=== PATIENT | male | born 1950 | race Caucasian/White ===

== ENCOUNTER 2020-05-05 14:44 | Outpatient (CLI) | payer MEDICARE, OTHER, SELFPAY ==
--- NOTE | 2020-05-05 14:56 | XR_ITS ---
WS: [id number] Chest 2 views, 05/05/2020 Clinical Data: CHRONIC COUGH Comparison: PA and lateral chest, 07/18/2011 Findings: No nodules, masses or effusions are seen. The heart is normal. The pulmonary vascularity is not increased. No pneumonia or pneumothorax is seen. The patient's had an anterior cervical disc fus ion. The aortic arch and descending aorta are slightly tortuous. There is a dextroscoliosis of the zahra mbar spine. XR/XR chest 2V* [id number] Impression: Atherosclerosis.
== END 2020-05-05 14:45 | disposition home or self-care (01) ==
LOC: RADWPI 14:48
PROVIDERS: Family Provider Family Medicine; PCP Family Medicine; Visit Provider Family Medicine
DX: R05 Cough (principal)
CPT/HCPCS: 71046

== ENCOUNTER 2020-06-01 12:00 | Outpatient (CLI) | payer MEDICARE, OTHER, SELFPAY | END 2020-06-01 12:01 | disposition home or self-care (01) | LOC: SLEEP 06-02 13:52 | PROVIDERS: Family Provider Family Medicine; PCP Family Medicine; Visit Provider Internal Medicine Critical Care Medicine | DX: G47.10 Hypersomnia, unspecified (principal); R53.83 Other fatigue; R06.83 Snoring; G47.33 Obstructive sleep apnea (adult) (pediatric) | CPT/HCPCS: G0399 ==

== ENCOUNTER 2021-02-09 09:41 | Outpatient (CLI) | payer MEDICARE, OTHER, SELFPAY ==
[2021-02-09 11:04] VITALS: BMI 22.7
--- NOTE | 2021-02-09 11:04 | ECG_ITS ---
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 Baseline heart rate was 92 beats per minute. Baseline blood pressure was 191/81 millimeters of mercury. Target heart rate was 151 beats per minute. Maximum heart rate achieved was 134, which was 88% of the target heart rate. Maximum blood pressure was 214/85 millimeters of mercury. Total exercise time was 2 minutes 31 seconds. Maximum METs achieved was 4.6, maximum VO2 was 16.1. The reason for ending the test was maximum effort achieved. The patient complained of during the stress test, which then resolved at the end of the test. ELECTROCARDIOGRAM: BASELINE: Showed sinus rhythm, normal axis, right bundle branch block, no significant ST-T changes at the baseline noted. EXERCISE: At the peak exercise level, no significant ST-T changes suggestive of ischemia noted. RECOVERY: During the recovery period, heart rate dropped appropriately. No significant ST-T changes in the recovery suggestive of ischemia noted. CONCLUSION: 1. Exercise capacity poor. 2. Heart rate response was tachycardic. 3. Blood pressure response was hypertensive. 4. Symptoms not suggestive of ischemia. 5. Electrocardiogram portion of the stress test was not suggestive of ischemia. 6. Nuclear scan will be documented separately. Please note that due to under achievement of METs and poor exercise capacity specificity and center history of EKG portion of the stress test will be low. Electronically Signed On 03-09-2021 20:13:10 CDT by LUIS EDUARDO GARZA [id number]
--- NOTE | 2021-02-09 11:05 | NMCV_ITS ---
NM billie perf SPECT r/s* [id number] Magaly Romeo Age: 70 Gender: M : 1950 Exam Date: 02/09/2021 11:05 Ordering Phys: Claudio Guillen MD Technologist: TEVIN Hung Exam Location: [facility] [place] Indications: DYSPNEA STRESS TEST Please see separate stress test report in [facility] for full findings IMAGE PROTOCOL Rest/Stress 1 Exercise Day Radiopharmaceutical Dose (mCi) Administration Site Administered by Rest: Tc-99m 10.6 IV TEVIN Hung Sestamibi Stress:Tc-99m 32.7 IV TEVIN Wang Sestamibi Rest: 09-Feb-2021 60 Discovery 630 Stress: 09-Feb-2021 15 Discovery 630 Radiopharmaceutical was injected at 86 % maximum heart rate. Images obtained in supine and prone position. SPECT RESULTS Technical Quality: Excellent Raw Data Analysis: Normal Image Corrections: No attenuation or motion correction applied Summed Stress Score: 1 Summed Rest Score: 0 Summed Difference Score: 1 PERFUSION FINDINGS SPECT images demonstrate homogeneous tracer distribution throughout the myocardium. FUNCTIONAL RESULTS (calculated via Gated SPECT) Stress Image LV EF (%): 76 Stress EDV (mL):70 TID: 1 Stress ESV (mL):17 Rest Image LV EF (%): 76 FUNCTIONAL FINDINGS: There is normal left ventricular systolic function. IMPRESSIONS Myocardial perfusion imaging is normal and low probability for obstructive coronary disease. EKG segment will be documented separately . Abdiaziz Castaneda MD (Electronically Signed) Final Date: 10 February 2021 12:40 S
[2021-02-09 11:44] VITALS: BP 185/90; PULSE 99
== END 2021-02-09 09:42 | disposition home or self-care (01) ==
PROVIDERS: PCP Family Medicine; Visit Provider Family Medicine
DX: R07.9 Chest pain, unspecified (principal); R06.00 Dyspnea, unspecified
CPT/HCPCS: 78452; 93017; A9500

== ENCOUNTER → 2021-10-14 09:49 | Outpatient (BNVA) | payer MEDICARE, OTHER, SELFPAY | PROVIDERS: PCP Family Medicine; Visit Provider Nurse Practitioner Family | DX: Z20.822 Contact with and (suspected) exposure to COVID-19 (principal) | CPT/HCPCS: 87635 ==

== ENCOUNTER 2021-10-21 10:25 | Outpatient (CLI) | payer MEDICARE, OTHER, SELFPAY ==
--- NOTE | 2021-10-21 | MR_ITS ---
WS: [id number] MRI CERVICAL SPINE NONCONTRAST TECHNIQUE: Sagittal T1, T2 and STIR imaging. Axial T2, gradient, and fiesta imaging. CLINICAL INFORMATION: CERVICAL SPINE DISORDER COMPARISON: MRI 2019 FINDINGS: Straightening of the normal cervical lordosis. Anterior and interbody cervical fusion C3-C7. Alignmen t is unchanged from previous. Cord signal is normal. C2-C3: Disc desiccation. Spinal canal and foramen are patent. Mild facet arthropathy. C3-C4: Anterior interbody cervical fusion. Spinal canal and foramen are patent. C4-C5: Anterior interbody cervical fusion. Mild facet arthropathy. Spinal canal and foramen are paten t. C5-C6: Anterior interbody cervical fusion. Mild left bony foraminal narrowing. Spinal canal and jorje en are patent. Mild facet arthropathy. C6-C7: Anterior interbody cervical fusion. Mild bilateral bony foraminal narrowing left greater than right. Spinal canal is patent. C7-T1: Anterior interbody cervical fusion. Mild left greater than right bony foraminal narrowing. Spi nal canal is patent. T1-T2: Shallow central disc protrusion. Mild central canal stenosis. Moderate bilateral bony foramina l narrowing.. Visualized brain stem structures: Normal. Prevertebral soft tissues: Normal. MR/MR cervical spin wo con* [id number] IMPRESSION: 1. Straightening of the normal cervical lordosis. No high-grade central canal narrowing. Cord signal is normal. 2. Anterior and interbody cervical fusion. C3-C7 is stable in appearance. 3. Tiny central disc protrusion T1-T2 with mild central canal stenosis and mod erate bilateral bony foraminal narrowing at this level. 4. Mild left C6-C7 and mild bilateral C7-T1 bony foraminal narrowing. 5. Overall no significant changes compared to 2019.
== END 2021-10-21 10:26 | disposition home or self-care (01) ==
LOC: RADSHAW 10:30
PROVIDERS: PCP Family Medicine; Visit Provider Family Medicine
DX: M50.90 Cervical disc disorder, unspecified, unspecified cervical region (principal); R01.1 Cardiac murmur, unspecified; M51.24 Other intervertebral disc displacement, thoracic region; M48.04 Spinal stenosis, thoracic region; M43.22 Fusion of spine, cervical region
CPT/HCPCS: 72141

== ENCOUNTER → 2021-11-04 15:43 | Outpatient (BNVA) | payer MEDICARE, OTHER, SELFPAY | PROVIDERS: PCP Family Medicine; Referring Provider Family Medicine; Visit Provider Specialist | DX: G62.89 Other specified polyneuropathies (principal) | CPT/HCPCS: 95913 ==

== ENCOUNTER 2021-11-17 14:23 | Outpatient (CLI) | payer MEDICARE, OTHER, SELFPAY ==
--- NOTE | 2021-11-17 14:30 | USCV_ITS ---
Magaly Romeo Age: 71 Gender: M : 1950 Exam Date: 11/17/2021 14:46 Ordering Phys: Claudio Guillen MD Technologist: HARESH [place] [facility] [place]: Systolic murmur. BP: / HR: 87 Rhythm: Sinus Technical Quality: Good MEASUREMENTS (Male / Female) Normal Values 2D ECHO LV Diastolic Diameter PLAX 3.5 cm 4.2 - 5.9 / 3.9 - 5.3 cm LV Systolic Diameter PLAX 2.5 cm IVS Diastolic Thickness 1.0 cm 0.6 - 1.0 / 0.6 - 0.9 cm IVS Systolic Thickness 1.6 cm LVPW Diastolic Thickness 1.5 cm 0.6 - 1.0 / 0.6 - 0.9 cm LVPW Systolic Thickness 1.6 cm LVOT Diameter 1.9 cm LV Ejection Fraction 2D Teich 57.8 % LV Ejection Fraction MOD 2C 67.3 % LV Ejection Fraction 2C AL 67.0 % LA Diameter 3.5 cm LA Width 3.2 cm LA Height 5.1 cm RA Width 3.7 cm RA Height 4.4 cm Aorta at Sinotubular Diameter 2.9 cm M-MODE Aortic Annulus Diameter 3.2 cm LA Ao Ratio MM 1.1 MV E Point Septal Separation 0.1 cm DOPPLER AV Peak Velocity 131.0 cm/s LVOT Peak Velocity 148.0 cm/s AV Area Cont Eq vti 2.8 cm squared AV Area Cont Eq pk 3.1 cm squared MV Peak Velocity 110.0 cm/s MV Area PHT 4.9 cm squared Mitral E to A Ratio 1.1 MV E' Velocity 47.5 cm/s Mitral E to MV E' Ratio 10.4 Mitral E to LV E' Lateral Ratio 11.0 Mitral E to LV E' Septal Ratio 9.8 TR Peak Velocity 226.0 cm/s TR Peak Gradient 20.4 mmHg TV Peak E Velocity 42.0 cm/s Right Atrial Pressure 5.0 mmHg Pulmonary Artery Systolic Pressu 25.4 mmHg PV Peak Velocity 90.0 cm/s RV Acceleration Time 0.1 s RV Ejection Time 0.5 s RV AcT/ET 0.1 FINDINGS Left Ventricle Normal left ventricular size, systolic function and wall thickness, with no regional wall motion abnormalities. Left ventricular ejection fraction is estimated at 70 %. Normal diastolic function. Right Ventricle Normal right ventricular size and systolic function, RVSP 25.4 mmHg. Right Atrium Normal right atrial size. Right atrial pressure estimated at 3 mm Hg. Aneurysmal interatrial septum. Left Atrium Normal left atrial size. Mitral Valve Structurally normal mitral valve. No mitral valve stenosis. Mild mitral valve regurgitation. Aortic Valve Structurally normal trileaflet aortic valve. No aortic valve stenosis. No aortic valve regurgitation. Tricuspid Valve Structurally normal tricuspid valve. No tricuspid valve stenosis. Mild tricuspid valve regurgitation. Pulmonic Valve Pulmonic valve not well visualized. No pulmonary valve stenosis. Trace pulmonary valve regurgitation. Pericardium No pericardial effusion. Aorta Normal size aortic root and proximal ascending aorta. Normal sized inferior vena cava with normal respiratory variation. CONCLUSIONS 1. Normal left ventricular size, systolic function and wall thickness, with no regional wall motion abnormalities. Left ventricular ejection fraction is estimated at 70 %. Normal diastolic function. 2. Mild mitral and tricuspid valve regurgitation. 3. Normal pulmonary artery pressure. 4. Right atrial pressure estimated at 3 mm Hg. 5. No prior similar studies to compare. Namrata Epperson MD (Electronically Signed) Final Date: 19 November 2021 07:57 S
== END 2021-11-17 14:24 | disposition home or self-care (01) ==
LOC: RAD 14:26
PROVIDERS: PCP Family Medicine; Visit Provider Family Medicine
DX: R01.1 Cardiac murmur, unspecified (principal); I08.1 Rheumatic disorders of both mitral and tricuspid valves
CPT/HCPCS: 93306

== ENCOUNTER → 2022-07-12 14:13 | Outpatient (BNVA) | payer MEDICARE, OTHER, SELFPAY | PROVIDERS: PCP Family Medicine; Visit Provider Family Medicine | DX: L73.9 Follicular disorder, unspecified (principal) | CPT/HCPCS: 87070 ==

== ENCOUNTER 2022-11-14 10:29 | Outpatient (CLI) | payer MEDICARE, OTHER, SELFPAY ==
[2022-11-14 11:05] VITALS: BMI 23.5
--- NOTE | 2022-11-14 11:06 | NMCV_ITS ---
NM billie perf SPECT r/s* [id number] Magaly Romeo Age: 72 Gender: M : 1950 Exam Date: 11/14/2022 11:06 Ordering Phys: Claudio Guillen MD Technologist: TEVIN Wang Exam [facility]: [facility] Indications: HTN, tachycardia CAD STRESS TEST Please see separate stress test report in [facility] for full findings IMAGE PROTOCOL Rest/Stress 1 Lexiscan Day Radiopharmaceutical Dose (mCi) Administration Site Administered by Rest: Tc-99m 29.9 IV TEVIN Wang Sestamibi Stress:Tc-99m 10.8 IV TEVIN Wang Sestamibi Rest: 14-Nov-2022 60 Discovery 630 Stress: 18-Nov-2022 30 Discovery 630 0.4mg Lexiscan. Images obtained in supine and prone position. SPECT RESULTS Technical Quality: Good Raw Data Analysis: Normal Image Corrections: No attenuation or motion correction applied Summed Stress Score: 1 Summed Rest Score: 0 Summed Difference Score: 1 PERFUSION FINDINGS SPECT images demonstrate homogeneous tracer distribution throughout the myocardium. FUNCTIONAL RESULTS (calculated via Gated SPECT) Stress Image LV EF (%): 62 Stress EDV (mL):76 TID: 1.71 Stress ESV (mL):29 FUNCTIONAL FINDINGS: The left ventricle is normal in size. Transient Ischemia Dilatation of 1.7. The left ventricular ejection fraction is normal with a value of 62%. There is normal left ventricular wall thickening. IMPRESSIONS 1. Myocardial perfusion imaging is normal. 2. Overall left ventricular systolic function is normal without regional wall motion abnormalities, LVEF=62%. 3. Transient ischemic dilation index increased at 1.7. This may represent subendocardial ischemia/multivessel CAD. Clinical correlation is advised. 4. EKG portion of the study will be reported separately. Namrata Epperson MD (Electronically Signed) Final Date: 19 November 2022 11:52 S
--- NOTE | 2022-11-14 13:05 | PC.NURSE ---
pt hr too high to complete test today. primary doc called, it was determined that the pt to return for a stress only portion on monday. pt to resume meds and was given instruction of new test. new order put in.
== END 2022-11-14 10:30 | disposition home or self-care (01) ==
PROVIDERS: PCP Family Medicine; Visit Provider Family Medicine
DX: R07.9 Chest pain, unspecified (principal)
CPT/HCPCS: 36415; 78452; A9500

== ENCOUNTER 2022-11-18 10:29 | Outpatient (CLI) | payer MEDICARE, OTHER, SELFPAY ==
--- NOTE | 2022-11-18 | ECG_ITS ---
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 Interpretive Statements NAME OF STUDY: LEXISCAN SESTAMIBI STRESS TEST INDICATION: Chest Pain PROCEDURE: At the baseline, the blood pressure was 167/77 mm Hg with a heart rate of 65 bpm. The electrocardiogram showed sinus rhythm, right axis deviation. RBBB. ST-T wave changes, consider infero-lateral ischemia. ??? The Lexiscan was infused over a period of 20 seconds. A total of 0.4 milligrams of Lexiscan was infused. The stress phase was continued for a total of 5 minutes. Heart rate at the end of the stress phase was 81 bpm with a blood pressure 137/67 mm Hg. The EKG at the peak infusion revealed no ST-T wave changes. ??? Sestamibi was injected 20 seconds after the Lexiscan infusion. ??? Blood pressure at the end of the recovery phase was 144/62 mm Hg with a heart rate of 78 beats per minute. ??? CONCLUSION: 1. No significant EKG changes with the LexiScan infusion. 2. No LexiScan induced chest pain or cardiac arrhythmia. 3. Normal blood pressure and heart rate response. 4. Sestamibi/sestamibi perfusion scan pending; see separate report. Electronically Signed On 11-23-2022 15:20:42 [employer]IMAL [employer] by Namrata Epperson M.D. [id number]
[2022-11-18 10:36] VITALS: BMI 22.7
[2022-11-18] MEDS: regadenoson 0.4 Mg/5 ml Syringe IVP (11:00)
[2022-11-18 12:00] VITALS: BP 144/62; PULSE 79
== END 2022-11-18 10:30 | disposition home or self-care (01) ==
LOC: CDL 10:31
PROVIDERS: PCP Family Medicine; Visit Provider Family Medicine
DX: R07.9 Chest pain, unspecified (principal)
CPT/HCPCS: 36415; 93017; 96374; J2785

== ENCOUNTER → 2022-11-30 11:14 | Outpatient (BNVA) | payer MEDICARE, OTHER, SELFPAY | PROVIDERS: PCP Family Medicine; Visit Provider Internal Medicine Cardiovascular Disease | DX: R07.9 Chest pain, unspecified (principal); G89.29 Other chronic pain; R51.9 Headache, unspecified; G47.33 Obstructive sleep apnea (adult) (pediatric) | CPT/HCPCS: 99203 ==

== ENCOUNTER → 2023-01-02 13:55 | Outpatient (BNVA) | payer MEDICARE, OTHER, SELFPAY | PROVIDERS: PCP Family Medicine; Visit Provider Otolaryngology | DX: R13.10 Dysphagia, unspecified (principal); R05.3 Chronic cough; K21.9 Gastro-esophageal reflux disease without esophagitis | CPT/HCPCS: 31575; 99203 ==

== ENCOUNTER → 2023-01-18 09:40 | Outpatient (BNVA) | payer MEDICARE, OTHER, SELFPAY | PROVIDERS: PCP Family Medicine; Visit Provider Internal Medicine Pulmonary Disease | DX: R05.3 Chronic cough (principal); M25.641 Stiffness of right hand, not elsewhere classified; M25.642 Stiffness of left hand, not elsewhere classified; R06.02 Shortness of breath; G47.33 Obstructive sleep apnea (adult) (pediatric) | CPT/HCPCS: 36415; 82785; 85651; 86003; 86140; 86160; 86162; 86235; 86255; 86376; 99214 ==

== ENCOUNTER → 2023-01-18 11:19 | Outpatient (BNVA) | payer MEDICARE, OTHER, SELFPAY | PROVIDERS: PCP Family Medicine; Visit Provider Internal Medicine Pulmonary Disease | DX: R05.3 Chronic cough (principal); M25.641 Stiffness of right hand, not elsewhere classified; M25.642 Stiffness of left hand, not elsewhere classified; R06.02 Shortness of breath | CPT/HCPCS: 36415; 71046; 82785; 85651; 86003; 86140; 86160; 86162; 86235; 86255; 86376; 99214 ==

== ENCOUNTER 2023-02-09 10:44 | Outpatient (CLI) | payer MEDICARE, OTHER, SELFPAY | END 2023-02-09 10:45 | disposition home or self-care (01) | LOC: RT 10:46 | PROVIDERS: PCP Family Medicine; Visit Provider Internal Medicine Pulmonary Disease | DX: R06.02 Shortness of breath (principal); R05.9 Cough, unspecified; G47.33 Obstructive sleep apnea (adult) (pediatric) | CPT/HCPCS: 36415; 82785; 85651; 86003; 86140; 86160; 86162; 86235; 86255; 86376; 94060; 94726; 94729; 99214 ==

== ENCOUNTER 2023-02-10 08:59 | Outpatient (CLI) | payer MEDICARE, OTHER, SELFPAY ==
--- NOTE | 2023-02-10 09:30 | FL_ITS ---
WS: [id number] MODIFIED BARIUM SWALLOW TECHNIQUE: Modified barium swallow with speech therapy using multiple consistencies. FLUOROSCOPY TIME: 2min [id number] # of spot films: 0 CLINICAL INFORMATION: Other dysphagia COMPARISON: None. FINDINGS: Straightening of the normal cervical lordosis. ACDF solid appearing bony fusion C3-C6. Multiple consi stencies utilized. No difficulties with barium tablet. No evidence of aspiration or penetration. No o ther suspicious findings. FL/FL barium swallow modifd [id number] IMPRESSION: 1. No evidence of penetration or aspiration. 2. No difficulties with barium tablet.
== END 2023-02-10 09:00 | disposition home or self-care (01) ==
LOC: RAD 09:04
PROVIDERS: PCP Family Medicine; Visit Provider Otolaryngology
DX: R13.10 Dysphagia, unspecified (principal)
CPT/HCPCS: 74230; 92611

== ENCOUNTER 2023-02-15 20:00 | Outpatient (CLI) | payer MEDICARE, OTHER, SELFPAY | END 2023-02-15 20:01 | disposition home or self-care (01) | LOC: SLEEP 02-16 04:17 | PROVIDERS: PCP Family Medicine; Visit Provider Family Medicine | DX: G47.33 Obstructive sleep apnea (adult) (pediatric) (principal); R13.10 Dysphagia, unspecified; R05.3 Chronic cough; K21.9 Gastro-esophageal reflux disease without esophagitis | CPT/HCPCS: 95811; 99213 ==

== ENCOUNTER → 2023-04-07 09:38 | Outpatient (BNVA) | payer MEDICARE, OTHER, SELFPAY | PROVIDERS: PCP Family Medicine; Visit Provider Internal Medicine Pulmonary Disease | DX: J45.991 Cough variant asthma (principal); G47.33 Obstructive sleep apnea (adult) (pediatric); M25.641 Stiffness of right hand, not elsewhere classified; M25.642 Stiffness of left hand, not elsewhere classified; R05.3 Chronic cough; J82.83 Eosinophilic asthma; R76.8 Other specified abnormal immunological findings in serum | CPT/HCPCS: 99214 ==

== ENCOUNTER 2023-04-13 20:00 | Outpatient (CLI) | payer MEDICARE, OTHER, SELFPAY | END 2023-04-13 20:01 | disposition home or self-care (01) | LOC: SLEEP 04-14 05:52 | PROVIDERS: PCP Family Medicine; Visit Provider Family Medicine | DX: G47.33 Obstructive sleep apnea (adult) (pediatric) (principal) | CPT/HCPCS: 95811 ==

== ENCOUNTER → 2023-07-06 13:31 | Outpatient (BNVA) | payer MEDICARE, OTHER, SELFPAY | PROVIDERS: PCP Family Medicine; Visit Provider Internal Medicine Pulmonary Disease | DX: J45.991 Cough variant asthma (principal); G47.33 Obstructive sleep apnea (adult) (pediatric); M25.641 Stiffness of right hand, not elsewhere classified; M25.642 Stiffness of left hand, not elsewhere classified; J30.1 Allergic rhinitis due to pollen; J30.9 Allergic rhinitis, unspecified | CPT/HCPCS: 99214 ==

== ENCOUNTER → 2023-08-08 14:18 | Outpatient (BNVA) | payer MEDICARE, OTHER, SELFPAY | PROVIDERS: PCP Family Medicine; Visit Provider Family Medicine | DX: R06.81 Apnea, not elsewhere classified (principal); I10 Essential (primary) hypertension; R51.9 Headache, unspecified; G89.29 Other chronic pain; R53.83 Other fatigue; R07.9 Chest pain, unspecified; R35.0 Frequency of micturition | CPT/HCPCS: 80053; 80061; 84153; 85025; 86618; 86666; 86757 ==

== ENCOUNTER → 2023-08-29 14:28 | Outpatient (BNVA) | payer MEDICARE, OTHER, SELFPAY | PROVIDERS: PCP Family Medicine; Visit Provider Clinical Nurse Specialist Adult Health | DX: R25.3 Fasciculation (principal) | CPT/HCPCS: 80053; 83735; 84443; 85025; 85651; 86140 ==

== ENCOUNTER → 2023-09-05 08:58 | Outpatient (BNVA) | payer MEDICARE, OTHER, SELFPAY | PROVIDERS: PCP Family Medicine; Visit Provider Internal Medicine Rheumatology | DX: Z79.899 Other long term (current) drug therapy (principal); M35.9 Systemic involvement of connective tissue, unspecified; R76.8 Other specified abnormal immunological findings in serum; R05.3 Chronic cough | CPT/HCPCS: 99204 ==

== ENCOUNTER → 2023-09-07 15:41 | Outpatient (BNVA) | payer MEDICARE, OTHER, SELFPAY | PROVIDERS: PCP Family Medicine; Visit Provider Family Medicine | DX: R31.9 Hematuria, unspecified (principal) | CPT/HCPCS: 81000 ==

== ENCOUNTER 2023-10-04 14:09 | Outpatient (CLI) | payer MEDICARE, OTHER, SELFPAY ==
[2023-10-05 15:34] LABS: Cyclic Citrullinated Peptide <16 UNITS
== END 2023-10-04 14:10 | disposition home or self-care (01) ==
LOC: LAB 14:12
PROVIDERS: PCP Family Medicine; Visit Provider Internal Medicine Rheumatology
DX: M35.9 Systemic involvement of connective tissue, unspecified (principal); Z79.899 Other long term (current) drug therapy
CPT/HCPCS: 36415; 86200; 86431; 99214

== ENCOUNTER → 2023-12-11 09:40 | Outpatient (BNVA) | payer MEDICARE, OTHER, SELFPAY | PROVIDERS: PCP Family Medicine; Visit Provider Psychiatry & Neurology Neurology | DX: G25.3 Myoclonus (principal); R56.9 Unspecified convulsions; Z79.899 Other long term (current) drug therapy; I10 Essential (primary) hypertension | CPT/HCPCS: 36415; 82306; 82607; 82746; 83090; 83735; 83921; 99203 ==

== ENCOUNTER 2023-12-20 12:18 | Outpatient (CLI) | payer MEDICARE, OTHER, SELFPAY ==
--- NOTE | 2023-12-20 13:00 | USCV_ITS ---
Magaly Romeo Age: 73 Gender: M : 1950 Exam Date: 12/20/2023 12:41 Ordering Phys: Goldy Portillo MD Technologist: Exam Location[place] [facility] [place] Indication: dizzy Risk Factors: Previous Vascular Surgery: Right Brachial BP: / Left Brachial BP: / Right Left Velocity (cm/s) Spectral Plaque Velocity (cm/s) Spectral Plaque Syst/Diast Broadening Syst/Diast Broadening 94.70/ 21.70 Prox CCA 126.10/ 26.90 96.60/ 19.90 Mid CCA 66.50 / 14.20 111.20/19.90 Hetro Distal CCA 72.00 / 7.00 Hetro 85.00/ 16.00 Hetro Prox ICA 54.10 / 15.90 Hetro 89.30/ 14.40 Mid ICA 71.40 / 20.80 83.80/ 21.70 Distal ICA 67.50 / 19.60 113.00 ECA 84.60 0.80 ICA/CCA 1.00 Antegrade Vertebral Antegrade 83.00/ 16.00 cm/s 30.00/ 7.00 cm/s Subclavian Bi 73.00 108.0 0 FINDINGS Comparison: none available. No significant elevation of systolic or diastolic velocities. Waveforms are normal. Mild carotid atherosclerosis. Antegrade vertebral arteries. CONCLUSIONS Bilateral ICA stenosis less than 50%. Dr. Mary Tobin DO (Electronically Signed) Final Date: 20 December 2023 16:02 S
== END 2023-12-20 12:19 | disposition home or self-care (01) ==
LOC: RAD 12:18
PROVIDERS: PCP Family Medicine; Visit Provider Psychiatry & Neurology Neurology
DX: R56.9 Unspecified convulsions (principal); I65.23 Occlusion and stenosis of bilateral carotid arteries
CPT/HCPCS: 93880; 99214

== ENCOUNTER 2024-01-04 14:51 | Outpatient (CLI) | payer MEDICARE, OTHER, SELFPAY ==
--- NOTE | 2024-01-04 15:15 | MR_ITS ---
WS: [id number] MRI HEAD WITH CONTRAST TECHNIQUE: Sagittal T1, T2 axial, T2 axial FLAIR, axial susceptibility weighted imaging, axial diffus ion weighted images, and coronal T2 images were obtained. Pre and post-T1 axial and post T1 coronal i mages. ADC and FSPGR images. CLINICAL INFORMATION: R56.9 - Unspecified convulsions COMPARISON: None. FINDINGS: No evidence of restricted diffusion to suggest acute ischemia. Ventricular system and basilar ciste rns are patent. Mild small vessel changes. Moderate parenchymal volume loss worst in the frontal lobe s. Normal posterior fossa. Normal vascular flow voids at the skull base. No extra-axial fluid collect ions. No evidence of mass or mass effect. Tiny chronic lacunar infarcts bilateral thalami. Mild mucos al thickening in the ethmoid air cells. Mastoid air cells are well aerated. Postoperative changes wit h susceptibility artifact in the upper cervical spine. No hemosiderin on the susceptibly weighted images. Normal optic chiasm and pituitary infundibulum. Te mporal lobes and hippocampal formations are normal in appearance. Normal cavernous sinuses and Meckel 's cave. No abnormal gadolinium enhancement. No enhancing intracranial lesions. Normal dural venous sinuses. IMPRESSION: 1. No evidence of restricted diffusion to suggest acute ischemia. 2. Mild small vessel changes. Moderate parenchymal volume loss worse in the frontal lobes. 3. Temporal lobes and hippocampal formations are normal in appearance. 4. No abnormal gadolinium enhancement. 5. No hemosiderin on the susceptibility images.
[2024-01-04] MEDS: gadobenate dimeglumine 20 mL vial IV (17:17)
== END 2024-01-04 14:52 | disposition home or self-care (01) ==
LOC: RAD 14:51
PROVIDERS: PCP Family Medicine; Visit Provider Psychiatry & Neurology Neurology
DX: R56.9 Unspecified convulsions (principal); I67.89 Other cerebrovascular disease; J45.991 Cough variant asthma; R05.3 Chronic cough; G47.33 Obstructive sleep apnea (adult) (pediatric); M25.641 Stiffness of right hand, not elsewhere classified; M25.642 Stiffness of left hand, not elsewhere classified; R09.81 Nasal congestion; Z79.51 Long term (current) use of inhaled steroids; Z79.899 Other long term (current) drug therapy
CPT/HCPCS: 70553; 99214; A9577

== ENCOUNTER → 2024-02-06 07:23 | Outpatient (BNVA) | payer MEDICARE, OTHER, SELFPAY | PROVIDERS: PCP Family Medicine; Visit Provider Psychiatry & Neurology Neurology | DX: R56.9 Unspecified convulsions (principal); Z79.899 Other long term (current) drug therapy; R07.9 Chest pain, unspecified; G25.3 Myoclonus | CPT/HCPCS: 95812; 95819 ==

== ENCOUNTER → 2024-02-08 10:53 | Outpatient (BNVA) | payer MEDICARE, OTHER, SELFPAY | PROVIDERS: PCP Family Medicine; Visit Provider Psychiatry & Neurology Neurology | DX: G25.3 Myoclonus (principal); G40.909 Epilepsy, unspecified, not intractable, without status epilepticus | CPT/HCPCS: 99212 ==

== ENCOUNTER → 2024-02-22 14:01 | Outpatient (BNVA) | payer MEDICARE, OTHER, SELFPAY | PROVIDERS: PCP Family Medicine; Visit Provider Family Medicine | DX: Z79.899 Other long term (current) drug therapy (principal); R76.8 Other specified abnormal immunological findings in serum | CPT/HCPCS: 80076; 82565; 85025; 86140 ==

== ENCOUNTER → 2024-05-09 15:24 | Outpatient (BNVA) | payer MEDICARE, OTHER, SELFPAY | PROVIDERS: PCP Family Medicine; Visit Provider Family Medicine | DX: I10 Essential (primary) hypertension (principal) | CPT/HCPCS: 80048 ==

== ENCOUNTER → 2024-11-05 14:46 | Outpatient (BNVA) | payer MEDICARE, OTHER, SELFPAY | PROVIDERS: PCP Family Medicine; Visit Provider Family Medicine | DX: I10 Essential (primary) hypertension (principal); R55 Syncope and collapse | CPT/HCPCS: 80053; 83735; 84443; 85025; 86140 ==

== ENCOUNTER 2025-04-16 11:32 | Outpatient (CLI) | payer MEDICARE, OTHER, SELFPAY ==
--- NOTE | 2025-04-16 11:38 | MR_ITS ---
WS: [id number] MRI HEAD WITH CONTRAST TECHNIQUE: Sagittal T1, T2 axial, T2 axial FLAIR, axial susceptibility weighted imaging, axial diffusion weighted images, and coronal T2 images were obtained. Pre and post-T1 axial and post T1 coronal images. ADC and FSPGR images. CLINICAL INFORMATION: SYNCOPE COMPARISON: 01/04/2024 FINDINGS: No evidence of restricted diffusion to suggest acute ischemia. Ventricular system and basal cisterns are patent. Mild small vessel changes with moderate parenchymal volume loss. Normal posterior fossa. Normal vascular flow voids at the skull base. No extra-axial fluid collections. Mild mucosal thickening in the paranasal sinuses. Small amount of fluid in the ethmoid air cells and sphenoid sinuses. Air-fluid level in the sphenoid sinuses. Mastoid air cells are well aerated. Tiny chronic infarcts bilateral thalami unchanged. Postoperative changes with susceptibility artifact in the upper cervical spine. No hemosiderin on the susceptibly weighted images. Normal optic chiasm and pituitary infundibulum. Temporal lobes and hippocampal formations are normal in appearance. Normal dural venous sinuses. No abnormal gadolinium enhancement. MR/MR head wo/w con [id number] IMPRESSION: 1. No evidence of restricted diffusion to suggest acute ischemia. 2. Mild small vessel changes with moderate parenchymal volume loss 3. No abnormal gadolinium enhancement. 4. Sphenoid sinusitis with air-fluid levels. Ethmoid sinusitis. 5. No other acute findings.
[2025-04-16] MEDS: gadobenate dimeglumine 20 mL vial 15 ML IV (12:14)
== END 2025-04-16 11:33 | disposition home or self-care (01) ==
LOC: RAD 11:35
PROVIDERS: PCP Family Medicine; Visit Provider Psychiatry & Neurology Neurology
DX: R55 Syncope and collapse (principal); R93.0 Abnormal findings on diagnostic imaging of skull and head, not elsewhere classified; J32.3 Chronic sphenoidal sinusitis; J32.2 Chronic ethmoidal sinusitis; J34.89 Other specified disorders of nose and nasal sinuses
CPT/HCPCS: 70553; A9577

== ENCOUNTER → 2025-05-08 12:56 | Outpatient (BNVA) | payer MEDICARE, OTHER, SELFPAY | PROVIDERS: PCP Family Medicine; Visit Provider Specialist | DX: R55 Syncope and collapse (principal); R56.9 Unspecified convulsions | CPT/HCPCS: 95816 ==

== ENCOUNTER 2025-06-19 11:59 | Outpatient (CLI) | payer MEDICARE, OTHER, SELFPAY ==
--- NOTE | 2025-06-19 12:04 | USCV_ITS ---
Magaly Romeo Age: 74 Gender: M : 1950 Exam Date: 06/19/2025 12:19 Ordering Phys: Clementina Gloria DO Technologist: PARISA [place] [facility] [place]: Syncope BP: 160 / 78 HR: 61 Rhythm: Sinus Technical Quality: Adequate MEASUREMENTS (Male / Female) Normal Values 2D ECHO LV Diastolic Diameter PLAX 4.2 cm 4.2 - 5.9 / 3.9 - 5.3 cm IVS Diastolic Thickness 0.9 cm 0.6 - 1.0 / 0.6 - 0.9 cm IVS Systolic Thickness 1.7 cm LVPW Diastolic Thickness 1.3 cm 0.6 - 1.0 / 0.6 - 0.9 cm LVPW Systolic Thickness 1.2 cm LVOT Diameter 1.9 cm LV Ejection Fraction 2D Teich 51.5 % LV Ejection Fraction MOD 4C 62.1 % LV Ejection Fraction MOD 2C 57.2 % LV Ejection Fraction 2C AL 55.9 % LA Diameter 2.7 cm RA Systolic Volume 4C AL 40.5 ml RA Systolic Volume 4C MOD 37.3 ml LA Sys Volume AL 28.7 cm cubed LA Sys Volume Index AL 16.2 cm cubed/m squared Aorta at Sinotubular Diameter 2.9 cm IVC Diameter 1.6 cm M-MODE LA Ao Ratio MM 1.3 AV Cusp Separation MM 1.4 cm DOPPLER AV Peak Velocity 109.0 cm/s LVOT Peak Velocity 108.0 cm/s AV Area Cont Eq vti 2.7 cm squared AV Area Cont Eq pk 2.8 cm squared MV Peak Velocity 79.0 cm/s MV Area PHT 4.0 cm squared Mitral E to A Ratio 1.2 TV Peak E Velocity 56.0 cm/s PV Peak Velocity 101.0 cm/s FINDINGS Left Ventricle Normal left ventricular size and systolic function, EF 55-60%. No regional wall motion abnormalities. Right Ventricle Normal right ventricular size and systolic function. Right Atrium Normal right atrial size. Left Atrium Normal left atrial size. Mitral Valve Structurally normal mitral valve. Trace mitral valve regurgitation. Aortic Valve Structurally normal aortic valve. No aortic valve stenosis. Tricuspid Valve Insufficient TR jet to calculate RVSP Pulmonic Valve Not well visualized Pericardium Normal Aorta Normal in size IVC Appears to be normal CONCLUSIONS LV systolic function is normal with EF of 55-60% Trace mitral regurgitation Narciso Coronel MD (Electronically Signed) Final Date: 21 June 2025 00:48 S
== END 2025-06-19 12:00 | disposition home or self-care (01) ==
LOC: RAD 12:00
PROVIDERS: PCP Family Medicine; Visit Provider Internal Medicine Cardiovascular Disease
DX: R55 Syncope and collapse (principal)
CPT/HCPCS: 93306